=== PATIENT | male | born 1980 | race Caucasian/White ===

== ENCOUNTER 2017-06-27 23:29 | Emergency (ER) | payer MEDICARE, MEDICAID ==
[~2017-06-27] VITALS: Ht 190.5 cm; Wt 97.8 kg
[~2017-06-27 23:29] MED LIST: CEPH-571 PO; HYDR-565 PO; OMEP-84 PO; PANT20TA2 PO; SUCR1ORA2 PO; [UNRECOGNIZED DRUG - OTHER]; alleve
[2017-06-28] MEDS ORDERED: CYCL-1 PO (00:11)
[2017-06-28] MEDS ORDERED: ketorolac trometh. 30mg/ml inj. IM ONE (00:15)
[2017-06-28 00:31] VITALS: BP 117/90
== END 2017-06-28 00:32 | disposition home or self-care (01) ==
LOC: ER 23:29
DX: M54.5 Low back pain (principal); J45.909 Unspecified asthma, uncomplicated; F12.10 Cannabis abuse, uncomplicated; F15.10 Other stimulant abuse, uncomplicated; Z88.0 Allergy status to penicillin; Z79.899 Other long term (current) drug therapy
CPT/HCPCS: 96372; 99283; J1885; 29105